=== PATIENT | male | born 2000 | race Caucasian/White ===

== ENCOUNTER 2023-09-22 17:29 | Emergency (ER) | payer SELFPAY ==
[2023-09-22 17:32] VITALS: BP 124/80; PULSE 80; RESP 14; TEMP 28.3; O2SAT 100
--- NOTE | 2023-09-22 17:39 | ED.ALLEREA ---
HPI - Allergic Reaction General Chief complaint: Allergic Reaction Stated complaint: allergic reaction Time Seen by Provider: 09/22/23 17:38 History of Present Illness HPI narrative: 22-year-old male present to the emergency department for evaluation for a worsening allergic reaction. Patient states that he began having hives and itching yesterday which he attributed to a vegan cookie. Patient reports yesterday he took Benadryl and his symptoms did improve. Patient had symptoms reoccurred today so he presented to the urgent care. They attempted to get him p.o. Benadryl but he had onset of nausea and vomiting. At that point he was treated with epinephrine and EMS was called. EMS did treat the patient with IV Benadryl. Upon arrival emergency department patient states he is beginning to feel improved after the epi, epi was delivered at 5:00 p.m.. Related Data Allergies Allergy/AdvReac Type Severity Reaction Status Date / Time No Known Allergies Allergy Verified 09/22/23 18:20 Review of Systems Review of Systems: All systems reviewed & are unremarkable except as noted in HPI and below Exam Narrative: APPEARANCE: Well appearing, no pain, no distress, well-nourished. HEAD: normocephalic, atraumatic. EYES: PERRLA/EOMI, conjunctivae clear. NOSE: Normal no drainage EARS:TMS clear with good light reflex. THROAT: Pharynx clear, no exudate. NECK: Supple. No adenopathy, no masses. RESPIRATORY: Airway patent, respirations nonlabored. Clear to auscultation bilaterally, no rales, rhonchi, wheezing. CARDIOVASCULAR: Regular rate and rhythm without murmurs rubs or gallops. ABDOMINAL: Soft, nontender, nondistended, normal bowel sounds MUSCULOSKELETAL: Moves all extremities. Strength/ROM intact, No edema, No calf tenderness. NEURO: Alert. Cranial nerves II through XII intact. Grossly intact SKIN: Hives Course Course Emergency Course: Patient improved with treatment Vital Signs Vital signs: Vital Signs Temperature 83 F L 09/22/23 17:32 Pulse Rate 80 09/22/23 17:32 Respiratory Rate 14 09/22/23 17:32 Blood Pressure 124/80 09/22/23 17:32 Pulse Oximetry 100 09/22/23 17:32 Temperature 98.0 F 09/22/23 21:27 Pulse Rate 88 09/22/23 21:27 Respiratory Rate 18 09/22/23 21:27 Blood Pressure 112/60 09/22/23 21:27 Pulse Oximetry 99 09/22/23 21:27 Oxygen Delivery Room Air 09/22/23 17:40 MDM - Allergic Reaction MDM Narrative Medical decision making narrative: 22-year-old male present to the emergency department for evaluation allergic reaction. Patient had been treated with epinephrine and IV Benadryl prior to arrival. Upon arrival emergency department patient was treated with IV famotidine and IV Solu-Medrol. On re-evaluation patient states he does feel significantly improved, patient's hives have resolved. Anticipated discharge to home so patient was also started on p.o. prednisone in the emergency department. Was willing to wait the full 3 hours after his EpiPen that was given to him at approximately 5:00 p.m.. Was updated on reasons to return to the emergency department. All questions were addressed. Patient was also encouraged close follow-up with primary care physician and ultimately with a roadway engineer. Differential Diagnosis Differential diagnosis: Likely anaphylaxis, allergic reaction, angioedema, contact dermatitis, adverse reaction to drug, viral enanthem and urticaria Discharge Plan Discharge Clinical Impression: Allergic reaction Patient Disposition: Home, Self-Care Condition: Stable Instructions: Antibiotic Form, General Allergic Reaction (ED) Additional Instructions: Prednisone as directed for the next 5 days. Benadryl as needed intermittently for itching or hives. Have close follow-up with your primary care physician. If you have any worsening symptoms then please call or return to the emergency department. Prescriptions: New prednisone 50 mg tablet 50 mg P
[2023-09-22] MEDS: SODIUM CHLORIDE 0.9% IV 1,000 ML 999 ML IV CONT (17:51)
[2023-09-22] MEDS: ONDANSETRON INJ 4 MG/2 ML VIAL IV PUSH (17:51)
[2023-09-22] MEDS: FAMOTIDINE 20 MG/2 ML VIAL IV PUSH (17:52)
[2023-09-22] MEDS: methylPREDNISolone SOD SUCC 125 MG VIAL IV PUSH (17:54)
[2023-09-22 18:00] VITALS: BP 118/88; PULSE 64; RESP 16; O2SAT 100
[2023-09-22 18:45] VITALS: BP 100/55; PULSE 60; RESP 16; O2SAT 100
[2023-09-22] MEDS: predniSONE 20 MG TABLET 60 MG PO (19:21)
[2023-09-22 21:27] VITALS: BP 112/60; PULSE 88; RESP 18; TEMP 36.7; O2SAT 99
== END 2023-09-22 21:28 | disposition home or self-care (01) ==
PROVIDERS: Emergency Provider Emergency Medicine
DX: T78.40XA Allergy, unspecified, initial encounter (principal); X58.XXXA Exposure to other specified factors, initial encounter
CPT/HCPCS: 96361; 96374; 96375; 99284; J2405; J2919; J7030; J7512